=== PATIENT | female | born 1985 | race African-American/Black ===

== ENCOUNTER 2016-10-29 | Emergency (ER) | payer MEDICAID | END 2016-10-29 11:49 | disposition home or self-care (01) ==

== ENCOUNTER 2016-11-27 10:58 | Outpatient (CLI) | payer MEDICAID | END 2016-11-27 10:59 | disposition home or self-care (01) | DX: Z30.2 Encounter for sterilization (principal) ==

== ENCOUNTER 2016-11-29 11:03 | Day surgery (SDC) | payer MEDICAID ==
[~2016-11-29 11:03] MED LIST: ceFAZolin 2 GM/50 ML 50 ML IV ONE
[2016-11-29] MEDS ORDERED: LACTATED RINGERS 1,000 ML IV ONE (11:13)
[2016-11-29] MEDS ORDERED: ROCURONIUM 50 MG/5 ML VIAL IVP ONE (12:27)
[2016-11-29] MEDS ORDERED: GLYCOPYRROLATE 1 MG/5 ML VIAL IVP ONE (12:27)
[2016-11-29] MEDS ORDERED: SUCCINYLCHOLINE 200 MG/10 ML VIAL IVP ONE (12:27)
[2016-11-29] MEDS ORDERED: LIDOCAINE-MPF 2% 5 ML VIAL IM ONE (12:27)
[2016-11-29] MEDS ORDERED: ONDANSETRON 4 MG/2 ML VIAL IVP ONE (12:27)
[2016-11-29] MEDS ORDERED: PROPOFOL 200 MG/20 ML VIAL IVP ONE (12:27)
[2016-11-29] MEDS ORDERED: KETOROLAC 30 MG/ML VIAL IVP ONE (12:27)
[2016-11-29] MEDS ORDERED: fentaNYL 100 MCG/2 ML VIAL IVP ONE (12:27)
[2016-11-29] MEDS ORDERED: DEXAMETHASONE 4 MG/ML VIAL IVP ONE (12:27)
[2016-11-29] MEDS ORDERED: NEOSTIGMINE 1 MG/1 ML 10 ML MDV IVP ONE (12:27)
[2016-11-29] MEDS ORDERED: MIDAZOLAM 2 MG/2 ML VIAL IVP ONE (12:27)
[2016-11-29] MEDS ORDERED: BUPIVACAINE 0.25%-EPI 1:200000 PF 30 ML VIAL SUBQ ONE (12:31)
== END 2016-11-29 11:04 | disposition home or self-care (01) ==
PROC: 0UPD7HZ Removal of Contraceptive Device from Uterus and Cervix, Via Natural or Artificial Opening (ICD-10-PCS; 2016-11-29)
PROC: 0UB74ZZ Excision of Bilateral Fallopian Tubes, Percutaneous Endoscopic Approach (ICD-10-PCS; principal; 2016-11-29 12:15)
DX: Z30.2 Encounter for sterilization (principal); K66.0 Peritoneal adhesions (postprocedural) (postinfection)
CPT/HCPCS: 58661; 81025; J0690; J7120

== ENCOUNTER 2017-11-07 08:00 | Outpatient (CLI) | payer MEDICAID ==
[2017-11-07 18:45] LABS: BASOPHILS % (AUTO) 0.3 %; EOSINOPHILS # (AUTO) 0.1 10^3/uL (0.0-0.7); EOSINOPHILS % (AUTO) 1.2 %; HGB - HEMOGLOBIN 13.6 g/dL (12.0-16.0); LYMPHOCYTES # (AUTO) 1.9 10^3/uL (1.5-3.5); LYMPHOCYTES % (AUTO) 22.3 %; MEAN CORPUSCULAR HEMOGLOBIN 31.9 pg (27.0-31.0); MEAN CORPUSCULAR HGB CONC 33.1 g/dL (32.0-36.0); MEAN CORPUSCULAR VOLUME 96.6 fL (81.0-99.0); MEAN PLATELET VOLUME 7.9 fL (7.9-10.8); MONOCYTES # (AUTO) 0.5 10^3/uL (0.0-1.0); MONOCYTES % (AUTO) 5.4 %; NEUTROPHILS % (AUTO) 70.8 %; PLT - PLATELET COUNT 366 10^3/uL (130-450); RED BLOOD COUNT 4.27 10^6/uL (4.20-5.40); RED CELL DISTRIBUTION WIDTH 13.1 % (12.0-15.0); WHITE BLOOD COUNT 8.4 x10^3/uL (4.8-10.8)
[2017-11-07 19:30] LABS: FOLATE 13.84 ng/mL (5.90 - >24.8)
== END 2017-11-07 08:01 | disposition home or self-care (01) ==
LOC: LAB.N 08:00
PROVIDERS: ATTEND Physician Assistant Medical
DX: D51.9 Vitamin B12 deficiency anemia, unspecified (principal)
CPT/HCPCS: 36415; 82607; 82746; 85025

== ENCOUNTER 2021-09-20 15:53 | Outpatient (CLI) | payer OTHER | END 2021-09-20 23:59 | disposition home or self-care (01) | LOC: LAB 15:53 → MERGE 15:53 → LAB 23:59 | PROVIDERS: ATTEND Family Medicine | DX: R39.9 Unspecified symptoms and signs involving the genitourinary system (principal) | CPT/HCPCS: 87086 ==